=== PATIENT | male | born 1950 | race Caucasian/White ===

== ENCOUNTER → 2017-04-03 | Outpatient (CLI) | payer OTHER | END | disposition home or self-care (01) | LOC: CFH 08:45 | PROVIDERS: ATTEND Internal Medicine Nephrology | DX: N28.1 Cyst of kidney, acquired (principal); N27.0 Small kidney, unilateral; N18.3 Chronic kidney disease, stage 3 (moderate) | CPT/HCPCS: 76770 ==

== ENCOUNTER → 2017-06-05 | Outpatient (CLI) | payer OTHER | END | disposition home or self-care (01) | LOC: CVU 07:27 | PROVIDERS: ATTEND Internal Medicine Cardiovascular Disease | DX: I65.23 Occlusion and stenosis of bilateral carotid arteries (principal); I10 Essential (primary) hypertension; I25.2 Old myocardial infarction | CPT/HCPCS: 93880 ==

== ENCOUNTER → 2017-12-10 | Outpatient (CLI) | payer OTHER | END | disposition home or self-care (01) | LOC: CFH 11:59 | PROVIDERS: ATTEND Internal Medicine Cardiovascular Disease | DX: I25.89 Other forms of chronic ischemic heart disease (principal); I35.8 Other nonrheumatic aortic valve disorders; I10 Essential (primary) hypertension; I25.2 Old myocardial infarction; I42.9 Cardiomyopathy, unspecified; Z86.73 Personal history of transient ischemic attack (TIA), and cerebral infarction without residual deficits | CPT/HCPCS: 78452; 93017; 93306; A9502 ==

== ENCOUNTER 2018-01-07 09:08 | Day surgery (SDC) | payer OTHER ==
[2018-01-06 09:52] VITALS: BP 154/77
[2018-01-06 10:19] LABS: BASOPHILS # (AUTO) 0.03 x10^3/uL (0-0.1); BASOPHILS % (AUTO) 1 % (0-1); EOSINOPHILS # (AUTO) 0.06 x10^3/uL (0-0.4); EOSINOPHILS % (AUTO) 1 % (1-7); LYMPHOCYTES # (AUTO) 1.24 x10^3/uL (1-3.4); LYMPHOCYTES % (AUTO) 27 % (22-44); MD NO; MEAN CORPUSCULAR HEMOGLOBIN 34.3 pg (27.5-34.5); MEAN CORPUSCULAR HGB CONC 34.7 g/dL (33.2-36.2); MEAN PLATELET VOLUME 7.1 fL (7.4-10.4); MONOCYTES # (AUTO) 0.42 x10^3/uL (0.2-0.8); MONOCYTES % (AUTO) 9 % (2-9); NEUTROPHILS # (AUTO) 2.89 x10^3/uL (1.8-6.8); NEUTROPHILS % (AUTO) 62 % (42-75); PLATELET COUNT 145 x10^3/uL (130-400); RED BLOOD COUNT 4.08 x10^6/uL (4.38-5.82); RED CELL DISTRIBUTION WIDTH 13.9 % (9.4-14.8)
[2018-01-06 10:26] LABS: INTERNATIONAL NORMALIZED RATIO 0.96 (0.93-1.1)
[2018-01-06 10:29] LABS: ANION GAP 7 mmol/L (5-15); CALCIUM 8.9 mg/dL (8.5-10.1); CHLORIDE 106 mmol/L (98-107); CREATININE 1.61 mg/dL (0.7-1.3)
[~2018-01-07] VITALS: Ht 182.9 cm; Wt 90.9 kg
[~2018-01-07 09:08] MED LIST: ASPI-496 PO; ATOR40TA78 PO; CARV3.1212 PO; LEVO137T2 PO; RANI300T PO; VALS320T2 PO
[2018-01-07] MEDS ORDERED: SODIUM CHLORIDE 0.9% 1,000 ML IV ONE (09:16)
[2018-01-07] MEDS ORDERED: DIPHENHYDRAMINE 50 MG/ML, 1ML IVPush ONE (09:30)
[2018-01-07] MEDS ORDERED: LIDOCAINE 2%, 20ML ONE (10:24)
[2018-01-07] MEDS ORDERED: MIDAZOLAM 1 MG/ML, 2ML ONE (10:24)
[2018-01-07] MEDS ORDERED: FENTANYL PF 100 MCG/2ML ONE (10:24)
[2018-01-07] MEDS ORDERED: NITROGLYCERIN 5 MG/ML, 10ML ONE (10:45)
[2018-01-07] MEDS ORDERED: VERAPAMIL 2.5 MG/ML, 2ML ONE (10:47)
[2018-01-07] MEDS ORDERED: HEPARIN 1,000 UNITS/ML, 10ML ONE (11:09)
[2018-01-07] MEDS ORDERED: SODIUM CHLORIDE 0.9% 1,000 ML IV SCH (11:31)
== END 2018-01-07 13:55 ==
LOC: CACL 09:08
PROVIDERS: ATTEND Internal Medicine Cardiovascular Disease
DX: I25.10 Atherosclerotic heart disease of native coronary artery without angina pectoris (principal); E78.2 Mixed hyperlipidemia; I25.5 Ischemic cardiomyopathy; I10 Essential (primary) hypertension; Z79.82 Long term (current) use of aspirin
CPT/HCPCS: 36415; 71046; 80048; 85025; 85610; 93454; 99156; C1894; J1200; J1644; J2250; J3010; J3490; J7030; Q9967

== ENCOUNTER 2018-10-30 09:56 | Day surgery (SDC) | payer MEDICARE, OTHER ==
[~2018-10-30 09:56] MED LIST changes: +AREDS-2; +CHOL500045 PO; +CLOP75TA52 PO; +LINA145C PO; +MULT-717 PO; +OMEG-14 PO; +VITAMIN D; +[UNRECOGNIZED DRUG - OTHER]
[2018-10-30] MEDS ORDERED: LIDOCAINE 1%, 20ML ONE (11:31)
== END 2018-10-30 12:12 | disposition home or self-care (01) ==
LOC: CACL 09:56
PROVIDERS: ATTEND Internal Medicine Cardiovascular Disease
DX: Z45.09 Encounter for adjustment and management of other cardiac device (principal); I63.9 Cerebral infarction, unspecified; I10 Essential (primary) hypertension; E78.2 Mixed hyperlipidemia
CPT/HCPCS: 33282; C1764; J3490

== ENCOUNTER → 2019-09-11 | Outpatient (CLI) | payer MEDICARE | END | disposition home or self-care (01) | LOC: CVU 08:35 | PROVIDERS: ATTEND Registered Nurse | DX: I65.21 Occlusion and stenosis of right carotid artery (principal); I63.9 Cerebral infarction, unspecified; I10 Essential (primary) hypertension; E78.5 Hyperlipidemia, unspecified; Z86.73 Personal history of transient ischemic attack (TIA), and cerebral infarction without residual deficits; Z82.49 Family history of ischemic heart disease and other diseases of the circulatory system | CPT/HCPCS: 93880 ==

== ENCOUNTER 2021-02-13 08:57 | Day surgery (SDC) | payer MEDICARE ==
[~2021-02-13] VITALS: Ht 182.9 cm; Wt 95.5 kg
[2021-02-13] MEDS ORDERED: LIDOCAINE 2%, 20ML ONE (09:20)
== END 2021-02-13 11:39 | disposition home or self-care (01) ==
LOC: CACL 08:57
PROVIDERS: ATTEND Internal Medicine Cardiovascular Disease
DX: Z45.09 Encounter for adjustment and management of other cardiac device (principal); I25.2 Old myocardial infarction; I11.0 Hypertensive heart disease with heart failure; I50.9 Heart failure, unspecified; I25.5 Ischemic cardiomyopathy; E78.2 Mixed hyperlipidemia; Z86.73 Personal history of transient ischemic attack (TIA), and cerebral infarction without residual deficits; Z98.890 Other specified postprocedural states; Z79.899 Other long term (current) drug therapy
CPT/HCPCS: 33286